=== PATIENT | female | born 1995 | race Two or more races ===

== ENCOUNTER 2022-09-18 06:40 | Inpatient (IN) | payer OTHER ==
[~2022-09-18] VITALS: Ht 149.9 cm; Wt 70.3 kg
[2022-09-18] MEDS ORDERED: PRENATAL VITAM1 EAC7 PO (08:00)
== END 2022-09-21 14:49 | disposition home or self-care (01) | DRG 788 ==
LOC: O/R 06:40 → OB/GYN 06:40 → LDR 06:40 → O/R 17:33 → OB/GYN 19:48
PROVIDERS: ADMIT Obstetrics & Gynecology Obstetrics; ATTEND Obstetrics & Gynecology Obstetrics
PROC: 4A1HXCZ Monitoring of Products of Conception, Cardiac Rate, External Approach (ICD-10-PCS; 2022-09-18)
PROC: 3E033VJ Introduction of Other Hormone into Peripheral Vein, Percutaneous Approach (ICD-10-PCS; 2022-09-18)
PROC: 3E0P7VZ Introduction of Hormone into Female Reproductive, Via Natural or Artificial Opening (ICD-10-PCS; 2022-09-18)
PROC: 10D00Z1 Extraction of Products of Conception, Low, Open Approach (ICD-10-PCS; principal; 2022-09-18 20:15)
DX: O36.63X0 Maternal care for excessive fetal growth, third trimester, not applicable or unspecified (principal); O62.0 Primary inadequate contractions; Z3A.40 40 weeks gestation of pregnancy; Z37.0 Single live birth; Z20.822 Contact with and (suspected) exposure to COVID-19